=== PATIENT | male | born 1935 | race Caucasian/White ===

== ENCOUNTER 2018-11-10 17:57 | Emergency (ER) | payer SELFPAY ==
[~2018-11-10] VITALS: Ht 167.6 cm; Wt 72.1 kg
[2018-11-10 18:25] VITALS: BP 135/60; PULSE 66; RESP 18; Ht 167.6 cm; Wt 72.1 kg
== END 2018-11-10 21:32 | disposition left against medical advice (07) ==
LOC: E/R 17:57
DX: Z53.21 Procedure and treatment not carried out due to patient leaving prior to being seen by health care provider (principal)